=== PATIENT | female | born 1995 | race Caucasian/White ===

== ENCOUNTER 2017-12-01 06:58 | Emergency (ER) | payer OTHER ==
--- NOTE | 2017-12-01 07:07 | ER Report ---
History and Physical Time Seen By MD: 07:07 HPI/ROS This is an otherwise healthy 21-year-old female who presents to the emergency department with dysuria, hematuria, urgency and frequency that started yesterday evening. The symptoms worsened early this morning. This feels similar to previous urinary tract infections. She has only had 1 other urinary tract infection. She does have an IUD, but no vaginal bleeding. No flank pain. No fever or chills. No nausea or vomiting. Allergies: Coded Allergies: No Known Drug Allergies (Unverified , 12/01/17) Home Meds No Active Prescriptions or Reported Meds Reviewed Nurses Notes: Yes Hx Smoking: No Smoking Status: Never Smoker Exposure to Second Hand Smoke?: No Hx Substance Use Disorder: No Hx Alcohol Use: No Constitutional Vital Sign - Last 24 Hours 12/01/17 07:00 Temp 98.2 Pulse 94 Resp 16 B/P (MAP) 101/69 Pulse Ox 95 O2 Delivery Room Air Physical Exam General Appearance: The patient is alert, has no immediate need for airway protection and no current signs of toxicity. Eyes: Pupils equal and round no injection. Respiratory: Chest is non tender, lungs are clear to auscultation. Cardiac: regular rate and rhythm Gastrointestinal: Abdomen is soft and non tender, no masses, bowel sounds normal. Back: no flank TTP Skin: No rashes or lesions. DIFFERENTIAL DIAGNOSIS: After history and physical exam differential diagnosis was considered for abdominal pain including but not limited to appendicitis, cholecystitis, gastritis and urinary tract infection, ectopic Medical Decision Making Data Points Laboratory Hematology Test 12/01/17 07:05 Urine Color Yellow Urine Clarity Cloudy Urine pH 6.0 pH (4.8-9.5) Urine Specific [place] 1.004 Urine Protein 100 mg/dL (NEGATIVE) Urine Glucose (UA) Negative mg/dL (NEGATIVE) Urine Ketones Negative mg/dL (NEGATIVE) Urine Blood Large (NEGATIVE) Urine Nitrite Negative (NEGATIVE) Urine Bilirubin Negative (NEGATIVE) Urine Urobilinogen Negative mg/dL (0.2-1.9) Urine Leukocyte Esterase Large (NEGATIVE) Urine RBC 227 /HPF (0-2/HPF) Urine WBC 365 /HPF (0-5/HPF) Urine WBC Clumps Few /HPF Urine Squamous Epithelial Cells Moderate /LPF (</=FEW) Urine Bacteria Few /HPF (NONE-FEW) Urine Mucus None /HPF (NONE-FEW) Urine HCG, Qualitative Negative (NEGATIVE) Chemistry Test 12/01/17 07:05 Urine Color Yellow Urine Clarity Cloudy Urine pH 6.0 pH (4.8-9.5) Urine Specific [place] 1.004 Urine Protein 100 mg/dL (NEGATIVE) Urine Glucose (UA) Negative mg/dL (NEGATIVE) Urine Ketones Negative mg/dL (NEGATIVE) Urine Blood Large (NEGATIVE) Urine Nitrite Negative (NEGATIVE) Urine Bilirubin Negative (NEGATIVE) Urine Urobilinogen Negative mg/dL (0.2-1.9) Urine Leukocyte Esterase Large (NEGATIVE) Urine RBC 227 /HPF (0-2/HPF) Urine WBC 365 /HPF (0-5/HPF) Urine WBC Clumps Few /HPF Urine Squamous Epithelial Cells Moderate /LPF (</=FEW) Urine Bacteria Few /HPF (NONE-FEW) Urine Mucus None /HPF (NONE-FEW) Urine HCG, Qualitative Negative (NEGATIVE) Urinalysis Test 12/01/17 07:05 Urine Color Yellow Urine Clarity Cloudy Urine pH 6.0 pH (4.8-9.5) Urine Specific [place] 1.004 Urine Protein 100 mg/dL (NEGATIVE) Urine Glucose (UA) Negative mg/dL (NEGATIVE) Urine Ketones Negative mg/dL (NEGATIVE) Urine Blood Large (NEGATIVE) Urine Nitrite Negative (NEGATIVE) Urine Bilirubin Negative (NEGATIVE) Urine Urobilinogen Negative mg/dL (0.2-1.9) Urine Leukocyte Esterase Large (NEGATIVE) Urine RBC 227 /HPF (0-2/HPF) Urine WBC 365 /HPF (0-5/HPF) Urine WBC Clumps Few /HPF Urine Squamous Epithelial Cells Moderate /LPF (</=FEW) Urine Bacteria Few /HPF (NONE-FEW) Urine Mucus None /HPF (NONE-FEW) Urine HCG, Qualitative Negative (NEGATIVE) ED Course/Re-evaluation ED Course Family pleasant otherwise healthy 21-year-old female who presents to the emergency department with hematuria, dysuria, urgency and frequency. Her a is suggestive of a urinary tract infection. Her hCG is negative. She has no flank pain, fever chills, or nausea vomiting to suggest an underlying kidney stone or pyelonephritis. I'm going to give her Keflex as an antibiotic and Pyridium to help with her symptoms. Decision to Disposition Date: December 01, 2017 Decision to Disposition Time: 08:01 Depart Departure Latest Vital Signs Vital Signs Date Time Temp Pulse Resp B/P (MAP) Pulse Ox O2 Delivery O2 Flow Rate FiO2 12/01/17 07:00 98.2 94 16 101/69 95 Room Air Impression: Primary Impression: UTI (urinary tract infection) Condition: Improved Disposition: HOME OR SELF-CARE New Scripts Phenazopyridine Hcl (PHENAZOPYRIDINE HCL) 200 Mg Tablet 200 MG PO TID for 3 Days, #10 TAB Prov: ANTONIA ROBERT MD 12/01/17 Cephalexin Monohydrate (CEPHALEXIN) 500 Mg Cap 500 MG PO BID, #10 CAP 0 Refills Prov: ANTONIA ROBERT MD 12/01/17 Patient Instructions: Urinary Tract Infection in Women (ED) Problem Qualifiers Primary Impression: UTI (urinary tract infection) Urinary tract infection type: acute cystitis Hematuria presence: with hematuria Qualified Codes: N30.01 - Acute cystitis with hematuria ANTONIA ROBERT MD December 01, 2017 07:07
[2017-12-01 08:00] VITALS: BP 112/70
[2017-12-01] MEDS ORDERED: CEPHALEXIN MONO 500 MG CAP PO ONE (08:00)
[2017-12-01] MEDS ORDERED: PHENAZOPYRIDINE 200 MG TAB PO ONE (08:00)
[2017-12-01] MEDS ORDERED: CEPH500C24 PO (08:05)
[2017-12-01] MEDS ORDERED: PHEN200T32 PO (08:05)
== END 2017-12-01 08:06 | disposition home or self-care (01) ==
LOC: ER 07:00
DX: N30.01 Acute cystitis with hematuria (principal)
CPT/HCPCS: 81001; 81025; 99283